=== PATIENT | male | born 1975 | race Two or more races ===

== ENCOUNTER 2017-05-05 15:24 | Emergency (ER) | payer SELFPAY ==
[~2017-05-05] VITALS: Ht 167.6 cm; Wt 93.0 kg
--- NOTE | 2017-05-05 15:50 | Emergency Room Report ---
History of Present Illness General Chief Complaint: General Complaint Source: Patient Present Illness HPI 41 YO Male presents to the ED c/O moderate anxiety attack after walking into a storage unit. pt. reports hx of panic attacks and previously was on Prozac daily for a year then d/c'd. pt. He reports that his anxiety has returned recently over the last 3 weeks. Pt. reports acute onset of symptoms feeling of doom, and on edge. that usually last 1-5 minutes pt. attempted distraction techniques, but they did not help with this attack. Pt. states upon arrival he feels much better, and his symptoms have almost completely resolved. pt. denies CP, SOB or hyperventilation. pt. reports hot flash denies diaphoresis, pt. denies cardiac hx, denies drug use. pt. Denies CP, Palpitations, LOC, AMS, dizziness, Changes in Vision, Sensation, paresthesias, or a sudden severe headache. Pt denies SI/HI. states he will follow up with his doctor to be started back onto Prozac. Allergies: Coded Allergies: No Known Allergies (Unverified , 05/05/17) Patient History Past Medical History: see triage record Past Surgical History: none Pertinent Family History: none Immunizations: UTD Reviewed Nursing Documentation: PMH: Agreed, PSxH: Agreed Nursing Documentation-PMH Past Medical History: No History, Except For History Of Psychiatric Problem: Yes - anxiety Review of Systems All Other Systems: negative except mentioned in HPI Physical Exam Vital Signs Date Time Temp Pulse Resp B/P (MAP) Pulse Ox O2 Delivery O2 Flow Rate FiO2 05/05/17 15:21 98.2 113 20 168/114 96 Room Air Sp02 EP Interpretation: reviewed, normal General Appearance: no apparent distress, alert, GCS 15, non-toxic Head: normocephalic, atraumatic Eyes: bilateral eye normal inspection, bilateral eye PERRL ENT: hearing grossly normal, normal voice Neck: full range of motion, supple/symm/no masses Respiratory: lungs clear, normal breath sounds, speaking full sentences Cardiovascular #1: regular rate, rhythm, tachycardia Rectal: deferred Genitourinary: normal inspection Musculoskeletal: back normal, gait/station normal, normal range of motion, non- tender Neurologic: alert, oriented x3, responsive, motor strength/tone normal, sensory intact, speech normal Psychiatric: judgement/insight normal, memory normal, mood/affect normal, anxious Skin: normal color, no rash, warm/dry, well hydrated Medical Decision Making PA Attestation Dr. Cuellar is my supervising Physician whom patient management has been discussed with. Diagnostic Impression: Primary Impression: Anxiety reaction ER Course 41 YO Male presents to the ED c/O moderate anxiety attack after walking into a storage unit. pt. reports hx of panic attacks and previously was on Prozac daily for a year then d/c'd. pt. He reports that his anxiety has returned recently over the last 3 weeks. Pt. reports acute onset of symptoms feeling of doom, and on edge. that usually last 1-5 minutes pt. attempted distraction techniques, but they did not help with this attack. Pt. states upon arrival he feels much better, and his symptoms have almost completely resolved. pt. denies CP, SOB or hyperventilation. pt. reports hot flash denies diaphoresis, pt. denies cardiac hx, denies drug use. pt. Denies CP, Palpitations, LOC, AMS, dizziness, Changes in Vision, Sensation, paresthesias, or a sudden severe headache. Pt denies SI/HI. states he will follow up with his doctor to be started back onto Prozac. Ddx considered but are not limited to anxiety, RI, PE, asthma, thyroid storm, hyperthyroid, EPS, electrolyte abnormality Vital signs: pt. is afebrile, Pt. BP and HR is elevated. - upon re-evaluation they have normalized. H&PE are most consistent with anxiety attack ORDERS: none required at this time, the diagnosis is clinical ED INTERVENTIONS: - 0.5 mg Ativan -Pt is given [facility] for follow up if he is unable to be seen by his Primary doctor in a timely manner. d/w pt. to return Promptly to ED with worsening or new symptoms. DISCHARGE: At this time pt. is stable for d/c to home. Will provide printed patient care instructions, and any necessary prescriptions. Care plan and follow up instructions have been discussed with the patient prior to discharge. Last Vital Signs Date Time Temp Pulse Resp B/P (MAP) Pulse Ox O2 Delivery O2 Flow Rate FiO2 05/05/17 15:21 98.2 113 20 168/114 96 Room Air Disposition: HOME, SELF-CARE Condition: Stable Scripts Alprazolam* (XANAX*) 0.5 Mg Tablet 0.5 MG ORAL PRN Y for For Anxiety, #5 TAB Prov: Beba Schuler 05/05/17 Patient Instructions: Generalized Anxiety Disorder Additional Instructions: Take medications as directed. Follow up with a Primary Care Provider in 3-5 days, even if your symptoms have resolved. Your PCP may put you back onto prozac or another SSRI for management of your recurrent panic attacks. --Please review list of primary care clinics, if you do not already have a primary care provider Return sooner to ED if new symptoms occur, or current symptoms become worse. Do not drink alcohol, drive, or operate heavy machinery while taking Xanax as this may cause drowsiness. - Please note that this Emergency Department Report was dictated using [employer] and slicer hand technology software, occasionally this can lead to erroneous entry secondary to interpretation by the dictation equipment. Beba Schuler May 05, 2017 15:50
[2017-05-05] MEDS ORDERED: LORazepam 0.5mg tab ONE (15:52)
[2017-05-05] MEDS ORDERED: XANAX0.5 MG ORAL (15:52)
[2017-05-05 15:56] VITALS: BP 178/119
[2017-05-05 15:58] VITALS: BP 178/119
[2017-05-05] MEDS ORDERED: LORazepam 0.5mg tab ORAL ONE (16:00)
== END 2017-05-05 16:01 | disposition home or self-care (01) ==
LOC: EDBD 15:24 → EMR 15:52
DX: F41.1 Generalized anxiety disorder (principal)
CPT/HCPCS: 99283